=== PATIENT | female | born 1985 | race Caucasian/White ===

== ENCOUNTER 2019-07-08 18:17 | Observation (INO) | payer BC ==
[2019-07-08] MEDS ORDERED: Acetaminophen 325 MG Tab PO PRN (20:13)
[2019-07-08] MEDS ORDERED: Levothyroxine 88 MCG Tab PO SCH (21:00)
== END 2019-07-09 10:05 | disposition home or self-care (01) ==
LOC: DL.OBCHECK 18:17 → DL.OB 20:08
PROVIDERS: ADMIT Obstetrics & Gynecology; ATTEND Obstetrics & Gynecology
DX: O99.89 Other specified diseases and conditions complicating pregnancy, childbirth and the puerperium (principal); O26.22 Pregnancy care for patient with recurrent pregnancy loss, second trimester; O9A.212 Injury, poisoning and certain other consequences of external causes complicating pregnancy, second trimester; N89.8 Other specified noninflammatory disorders of vagina; Z3A.21 21 weeks gestation of pregnancy
CPT/HCPCS: 76815; 81001; 84112; 87081; A9270; G0378